=== PATIENT | female | born 1980 | race Caucasian/White ===

== ENCOUNTER 2017-09-15 17:14 | Emergency (ER) | payer BC ==
[~2017-09-15] VITALS: Ht 172.7 cm; Wt 88.6 kg
[2017-09-15 18:25] LABS: APPEARANCE SL.HAZY ((CLEAR)); BILIRUBIN NEGATIVE; BLOOD MODERATE; COLOR YELLOW ((YELLOW)); GLUCOSE (STRIP) NEGATIVE; KETONES 5; LEUKOCYTES SMALL; NITRITE NEGATIVE; PROTEIN (STRIP) 30; SPECIFIC GRAVITY 1.029 (1.000-1.030); UROBILINOGEN 0.2 MG/DL (0.2-1.0)
[2017-09-15 18:34] LABS: AMPHETAMINE NEGATIVE (500 ng/mL); BARBITURATES NEGATIVE (200 ng/mL); BENZODIAZEPINES PRESUMPTIVE POSITIVE (150 ng/mL); BUPRENORPHINE NEGATIVE (10 ng/mL); COCAINE NEGATIVE (150 ng/mL); METHADONE NEGATIVE (200 ng/mL); METHAMPHETAMINE NEGATIVE (500 ng/mL); OPIATES (MORPHINE) NEGATIVE (100 ng/mL); OXYCODONE NEGATIVE (100 ng/mL); PHENCYCLIDINE PRESUMPTIVE POSITIVE (25 ng/mL); PROPOXYPHENE NEGATIVE (300 ng/mL); THC CANNABINOIDS NEGATIVE (50 ng/mL); TRICYCLIC ANTIDEPRESSANTS NEGATIVE (300 ng/mL)
[2017-09-15 18:46] LABS: HEMATOCRIT 37.9 % (36.0-46.0); HEMOGLOBIN 12.9 G/DL (11.9-15.5); MCH 30.9 PG (29.0-34.0); MCV 90.7 FL (83-99); PLATELET COUNT 399 K/uL (156-360); RBC DIS.WIDTH-SD 42.8 % (39-53); RED BLOOD COUNT 4.18 M/uL (3.80-5.20); WHITE BLOOD COUNT 9.9 K/uL (4.1-10.2)
[2017-09-15 19:06] LABS: ALBUMIN 4.5 g/dL (3.2-4.8); CHLORIDE 107 mEq/L (99-109); POTASSIUM 3.7 mEq/L (3.7-5.4); SODIUM 139 mEq/L (136-147)
[2017-09-15 19:08] LABS: GLUCOSE 94 mg/dL (70-99); TOTAL PROTEIN 7.8 g/dL (6.4-8.3)
[2017-09-15 19:10] LABS: TOTAL BILIRUBIN 0.5 mg/dL (0.0-1.0)
[2017-09-15 19:11] LABS: SERUM ETHYL ALCOHOL < 10 mg/dL
[2017-09-15 19:12] LABS: CREATININE 0.8 mg/dL (0.6-1.3)
[2017-09-15 19:13] LABS: ALKALINE PHOSPHATASE 70 IU/L (3-129)
[2017-09-15 19:14] LABS: AST (GOT) 17 IU/L (2-34); UREA NITROGEN (BUN) 17 mg/dL (9-23)
[2017-09-15 19:15] LABS: SALICYLATE < 5.0 MG/DL (15-30)
[2017-09-15 19:16] LABS: ACETAMINOPHEN (TYLENOL) < 10 mcg/mL (10-30); ALT (GPT) 17 IU/L (3-49); GFR ESTIMATE (CALCULATED) > 59 mL/min/
[2017-09-15 19:28] LABS: QUANTITATIVE HCG < 4.0 MIU/ML
[2017-09-15 19:29] LABS: BENZODIAZEPINES, URINE SCREEN POSITIVE (200 ng/mL)
[2017-09-15 19:36] LABS: BACTERIA 1+ /HPF; EPITHELIAL CELLS 4+ /HPF; MUCUS NONE SEEN /LPF; RED BLOOD CELLS 0-5 /HPF (0-5); UCUL ADDED? NO; WHITE BLOOD CELLS 0-5 /HPF (0-5)
[2017-09-15] MEDS ORDERED: DESYREL100 MG PO (19:37)
[2017-09-15] MEDS ORDERED: XANAX1 MG PO (19:38)
[2017-09-15] MEDS ORDERED: CYMBALTA30 MG PO (19:38)
[2017-09-15] MEDS ORDERED: LAMOTRIGINE200 MG PO (19:38)
[2017-09-16 11:50] VITALS: BP 111/53
== END 2017-09-16 12:02 ==
LOC: EME 17:14
PROVIDERS: Nurse Practitioner Family
DX: R45.851 Suicidal ideations (principal); F31.4 Bipolar disorder, current episode depressed, severe, without psychotic features; F17.200 Nicotine dependence, unspecified, uncomplicated; Z79.899 Other long term (current) drug therapy
CPT/HCPCS: 80053; 81003; 84702; 84999; 85027; 90837; 99281; 99284; G0480